=== PATIENT | male | born 1990 | race Caucasian/White ===

== ENCOUNTER 2016-12-26 11:46 | Day surgery (SDC) | payer OTHER ==
[2016-12-26 12:46] VITALS: BMI 21.6
[2016-12-26] MEDS ORDERED: LEVOFLOXACIN 500 MG IVPB 100 ML IVPB ONE (14:03)
[2016-12-26] MEDS ORDERED: LEVOFLOXACIN 500 MG PREMIX BAG IVPB ONE ×2 (14:14→14:23)
[2016-12-26] MEDS ORDERED: MIDAZOLAM HCL 2 MG/2 ML SINGLE DOSE VIAL ONE ×2 (14:17)
[2016-12-26] MEDS ORDERED: ONDANSETRON 4 MG/2 ML VIAL IVPUSH PRN (14:49)
[2016-12-26] MEDS ORDERED: oxyCODONE HCL 5 MG TABLET PO PRN (14:49)
[2016-12-26] MEDS ORDERED: PROMETHAZINE HCL 25 MG/1 ML VIAL IVPUSH PRN (14:49)
--- NOTE | 2016-12-26 15:00 | OP ---
Operative Note - Note: Operative Date: 12/26/16 Pre-Operative Diagnosis: left renal stones Operation: left eswl Findings: two 3mm lower pole stones Post-Operative Diagnosis: Same as Pre-op Surgeon: Nadeem Spicer Anesthesia: General Operative Report Dictated: Yes
[2016-12-26 15:17] VITALS: TEMP 97.9
[2016-12-26 15:43] VITALS: BP 136/71; PULSE 71
== END 2016-12-26 15:44 | disposition home or self-care (01) ==
LOC: UNMERGE 11:46 → MERGE 11:46 → JASU-SURG 11:46 → MERGE 13:30 → JASU-SURG 15:44
PROVIDERS: ATTEND Urology
PROC: 0TF4XZZ Fragmentation in Left Kidney Pelvis, External Approach (ICD-10-PCS; principal; 2016-12-26 13:15)
DX: N20.0 Calculus of kidney (principal)
CPT/HCPCS: 94760